=== PATIENT | female | born 1965 | race Caucasian/White ===

== ENCOUNTER 2016-11-28 06:39 | Emergency (ER) | payer OTHER ==
[~2016-11-28] VITALS: Ht 154.9 cm; Wt 80.0 kg
[~2016-11-28 06:39] MED LIST: ANXIETY MED PO; LISI-363 PO; MECL25CH PO
[2016-11-28 06:41] VITALS: BP 144/65; PULSE 94; RESP 16; TEMP 97.6; O2SAT 98
[2016-11-28 07:21] VITALS: BP 129/65; PULSE 90; RESP 18; TEMP 97.8; O2SAT 95
[2016-11-28] MEDS ORDERED: ORPH100T99 PO (07:23)
[2016-11-28] MEDS ORDERED: MEDR4PAK PO (07:23)
[2016-11-28] MEDS ORDERED: NORC5TAB PO (07:23)
--- NOTE | 2016-11-28 07:24 | PD ---
HPI Chief Complaint: Back/ Neck Pain or Injury Time Seen by Provider: 07:17 Travel History International Travel<30 days: No Contact w/Intl Traveler<30days: No Traveled to known affect area: No History of Present Illness HPI The patient is a 51-year-old female who presents emergency department for neck and back pain. The patient has a history of degenerative disc disease and sciatica. The patient is undergone physical therapy in the past and steroid injections in the past with mild to moderate relief of her symptoms. The patient also had MRIs performed 2 years ago was seen by neurosurgeon, Dr. Connors , who stated she possibly may be a candidate for surgery in the future. The patient was at work on , states the patient started to fall, and she caught the patient prior to fall. The patient states she strained her back at that time. The patient complains of lower back pain that radiates up to the neck and down the right leg, through the buttock, to the mid right calf. The patient denies any dysuria, frequency, urgency, or incontinence. The patient also states it feels like a "bus greaser sensation "on the lower back. She also complains of mild thoracic pain that radiates around to the chest wall, complains of mild pain with inspiration. The patient states her symptoms are elicited with movement and slightly alleviated at rest. She does have a history of degenerative disc disease in the past with similar symptoms. PFSH Past Medical History Arthritis: Yes Cancer: No Cardiovascular Problems: Yes (HTN) Diabetes: No Diminished Hearing: No Endocrine: No Genitourinary: No Hepatitis: No Hiatal Hernia: No Hypertension: Yes Immune Disorder: No Musculoskeletal: Yes (HERNIATED DISC L4, L5, ARTHRITIS, NECK STIFFNESS ) Neurologic: No Psychiatric: No Respiratory: No Immunizations Current: Yes Thyroid Disease: No ?: Not Tubal Ligation: Yes Past Surgical History Abdominal Surgery: Yes (RIGHT KIDNEY REMOVED 2002) Gynecologic Surgery: Yes (ADOMINAL HYSTERECTOMY 2003) Hysterectomy: Yes (partial) Social History Alcohol Use: No Tobacco Use: No (quit 2 years ago) Substance Use: No Allergies-Medications (Allergen,Severity, Reaction): Coded Allergies: No Known Allergies (Unverified , 11/28/16) Reported Meds & Prescriptions Reported Meds & Active Scripts Active Active Prescriptions or Reported Medications Unobtainable Review of Systems Except as stated in HPI: all other systems reviewed are Neg HENT: Positive: Vertigo (history of chronic vertigo), Neck Pain, No: Headaches Cardiovascular: No: Chest Pain or Discomfort Respiratory: No: Shortness of Breath Gastrointestinal: Positive: Nausea, No: Vomiting, Abdominal Pain Genitourinary: No: Urgency, Frequency, Dysuria, Hematuria, Incontinence Musculoskeletal: Positive: Pain Neurologic: No: Paresthesia, Sensory Disturbance Physical Exam Narrative GENERAL: Awake, alert, pleasant 51-year-old female who appears her stated age and is in no acute respiratory distress. SKIN: Warm and dry. HEAD: Atraumatic. Normocephalic. EYES: No injection or drainage. NECK: Trachea midline. No JVD. Negative meningeal signs. CARDIOVASCULAR: Regular rate and rhythm. No murmur appreciated. RESPIRATORY: No accessory muscle use. Clear to auscultation. Breath sounds equal bilaterally. Back: No tenderness of the paravertebral muscles. Mild tenderness of the right sacroiliac. MUSCULOSKELETAL: No obvious deformities. No clubbing. No cyanosis. No edema. The patient is able to ambulate and stand upright without difficulty. Rotation of the thorax to the left, right, as well as hyperextension and flexion of the back elicited symptoms. NEUROLOGICAL: Awake and alert. No obvious cranial nerve deficits. Motor grossly within normal limits. Normal speech. PSYCHIATRIC: Appropriate mood and affect; insight and judgment normal. Data Data Last Documented VS Vital Signs Date Time Temp Pulse Resp B/P Pulse Ox O2 Delivery O2 Flow Rate FiO2 11/28/16 06:41 97.6 94 16 144/65 98 Room Air MDM Medical Decision Making Medical Screen Exam Complete: Yes Emergency Medical Condition: Yes Medical Record Reviewed: Yes Differential Diagnosis Differential diagnosis includes sprain, strain, herniated disc, sciatica, back pain with radiculopathy. Narrative Course The patient has a history of similar symptoms in the past with low back pain with radiculopathy, states she underwent injections for sciatica and has been evaluated by neurosurgery in the past for chronic degenerative disc disease. The patient is able to ambulate and has no apparent loss of strength or acute neurologic deficits. The patient denies any incontinence. The patient was administered Decadron 8 mg IM and will be placed in a Medrol Dosepak, Norflex, and [place]. The patient is advised to follow-up with her primary physician and/ or return to neurosurgery if symptoms persist. Patient may benefit from outpatient physical therapy. Patient is advised no heavy lifting, bending, or prolonged standing at work. Diagnosis Primary Impression: Back pain with right-sided radiculopathy Patient Instructions: General Instructions Additional Instructions: Medications as directed. Follow-up with her primary physician and/or neurosurgeon if symptoms persist. No heavy lifting, bending, or prolonged standing. Return if symptoms worsen or progress. Med/Other Pt SpecificInfo: Prescription(s) given Scripts Hydrocodone-Acetaminophen ([place])5-325 mg Tab1 Tab PO Q6H PRN (PAIN) #15 TAB Ref 0 Prov:Dez Corrales MD 11/28/16 Orphenadrine ER 12 HR (Orphenadrine CR)100 Mg Arp777 Mg PO Q12HR #20 TAB Ref 0 Prov:Dez Corrales MD 11/28/16 Methylprednisolone Dosepak (Medrol Dosepak)4 Mg Dspk4 Mg PO DIRECTED #1 DSPK Ref 0 Per Pharmacist direction Prov:Dez Corrales MD 11/28/16 Disposition: 01 DISCHARGE HOME Condition: Stable Dez Corrales MD Nov 28, 2016 07:24
[2016-11-28] MEDS ORDERED: DEXAMETHASONE SOD PHOS 4 MG/ML VIAL IM ONE (07:30)
== END 2016-11-28 08:24 | disposition home or self-care (01) ==
LOC: NEPE 06:39
DX: M54.9 Dorsalgia, unspecified (principal)
CPT/HCPCS: 96372; 99283; J1100